=== PATIENT | male | born 1965 | race Caucasian/White ===

== ENCOUNTER 2018-03-06 00:30 | Emergency (ER) | payer MEDICAID, SELFPAY ==
[2018-03-06 00:31] VITALS: BP 190/129; PULSE 82; RESP 20; TEMP 36.7; O2SAT 98; BMI 27.2
--- NOTE | 2018-03-06 00:54 | ED.VIS.GEN ---
History of Present Illness Chief Complaint: Complaint Informant: Patient Onset: Yesterday Context: Gradual Onset Timing: Continuous Quality: can't urinate. burning at distal penis. Location: urethral Current Severity: Severe Maximum Severity: Severe Worsened by: urinating -- burning is worse. Relieved by: nothing Associated Symptoms: small amts of blood Narrative: Patient was transferred here from [facility] because they were not able to get a Holland catheter in for urinary retention. They attempted 3 times. Patient started having urinary retention symptoms yesterday but was able to urinate today, last time he urinated completely was about 11 hours ago. He had a small amount of urine output 3 or 4 hours after that, but none since despite trying. There were blood and clots present during and after Holland catheter attempts. The patient states he has always had difficulty making a good strong stream of urine, and has to physically push at the end get the rest of the urine out. He denies having any perineal pain or pain with having bowel movements, which have been normal and he has had no constipation. He denies any fevers, back pain, nausea, vomiting. He has no regular doctor. Past Medical History - Allergies and Home Meds Allergies/Adverse Reactions: Allergies No Known Allergies Allergy (Verified 03/06/18 00:33) Home Medications: Home Medications Medication Instructions Recorded Smz/Tmp Ds [Bactrim Ds] 1 tab PO BID #14 tab 03/06/18 Primary Care Physician: Laura Armas [Primary Care Provider] - Review of Systems All systems negative except as indicated General: Denies: Chills, Fever Gastrointestinal: Reports: Abdominal pain - due to full bladder and inability to urinate. Denies: Nausea, Vomiting Genitourinary: Reports: Dysuria, Hematuria, - - urinary retention. Denies: Frequency Physical Exam Vital Signs/Narrative: Vital Signs Temp Pulse Resp BP Pulse Ox 03/06/18 00:31 98.0 F 82 20 H 190/129 H 98 General: Well nourished, Well developed Head: Normocephalic, Atraumatic Eyes: Perrl, EOMI Cardiovascular: Regular rate, Regular rhythm, No murmurs Respiratory: No distress, CTA bilaterally, Chest nontender Abdomen: Soft, Nontender, Normal bowel sounds, - - suprapubic discomfort/distension Back: Nontender, Normal Inspection. Negative for: CVA tenderness Extremities: Nontender, No edema Skin: Normal color, No rash Neurological: Alert, Oriented x3, Cranial nerves II-XII grossly intact, Normal Strength, Normal Sensation, Normal Gait Psychological: - - anxious Diagnostic/Tx/Re-eval - Medical Decision Making Nurse attempted to place a daily 18 Ukrainian catheter, the largest available, and was unsuccessful in getting it past the prostate. Discussed with urology Dr. Barboza who came and evaluated the patient was able to place a catheter using instrumentation, he suspects a false passage, urinalysis shows signs of infection this was sent for culture and he will be started on Bactrim, he will follow up with Dr. carrizales in approximately 2 weeks, sent home with a leg bag, he feels much better now. ED Disposition - Plan for ED Patient: Disposition: Home or Assisted Living Chief Complaint: Complaint Diagnosis: Acute urinary retention, Acute lower UTI Instructions: ED Retention Urinary Male, ED UTI Cystitis Male Prescriptions: Smz/Tmp Ds [Bactrim Ds] 1 tab PO BID #14 tab Referrals: Laura Armas [Primary Care Provider] - Colton Tuttle MD [STAFF PHYSICIAN] - 1-2 Weeks (call for appt)
--- NOTE | 2018-03-06 00:58 | ED.DCSUM_ITS ---
History of Present Illness Chief Complaint: Complaint Informant: Patient Onset: Yesterday Context: Gradual Onset Timing: Continuous Quality: can't urinate. burning at distal penis. Location: urethral Current Severity: Severe Maximum Severity: Severe Worsened by: urinating -- burning is worse. Relieved by: nothing Associated Symptoms: small amts of blood Narrative: Patient was transferred here from [facility] because they were not able to get a Holland catheter in for urinary retention. They attempted 3 times. Patient started having urinary retention symptoms yesterday but was able to urinate today, last time he urinated completely was about 11 hours ago. He had a small amount of urine output 3 or 4 hours after that, but none since despite trying. There were blood and clots present during and after Holland catheter attempts. The patient states he has always had difficulty making a good strong stream of urine, and has to physically push at the end get the rest of the urine out. He denies having any perineal pain or pain with having bowel movements, which have been normal and he has had no constipation. He denies any fevers, back pain, nausea, vomiting. He has no regular doctor. Past Medical History - Allergies and Home Meds Allergies/Adverse Reactions: Allergies No Known Allergies Allergy (Verified 03/06/18 00:33) Home Medications: Home Medications Medication Instructions Recorded Smz/Tmp Ds [Bactrim Ds] 1 tab PO BID #14 tab 03/06/18 Primary Care Physician: Laura Armas [Primary Care Provider] - Review of Systems All systems negative except as indicated General: Denies: Chills, Fever Gastrointestinal: Reports: Abdominal pain - due to full bladder and inability to urinate. Denies: Nausea, Vomiting Genitourinary: Reports: Dysuria, Hematuria, - - urinary retention. Denies: Frequency Physical Exam Vital Signs/Narrative: Vital Signs Temp Pulse Resp BP Pulse Ox 03/06/18 00:31 98.0 F 82 20 H 190/129 H 98 General: Well nourished, Well developed Head: Normocephalic, Atraumatic Eyes: Perrl, EOMI Cardiovascular: Regular rate, Regular rhythm, No murmurs Respiratory: No distress, CTA bilaterally, Chest nontender Abdomen: Soft, Nontender, Normal bowel sounds, - - suprapubic discomfort/ distension Back: Nontender, Normal Inspection. Negative for: CVA tenderness Extremities: Nontender, No edema Skin: Normal color, No rash Neurological: Alert, Oriented x3, Cranial nerves II-XII grossly intact, Normal Strength, Normal Sensation, Normal Gait Psychological: - - anxious Diagnostic/Tx/Re-eval - Medical Decision Making Nurse attempted to place a daily 18 Khmer catheter, the largest available, and was unsuccessful in getting it past the prostate. Discussed with urology Dr. Barboza who came and evaluated the patient was able to place a catheter using instrumentation, he suspects a false passage, urinalysis shows signs of infection this was sent for culture and he will be started on Bactrim, he will follow up with Dr. carrizales in approximately 2 weeks, sent home with a leg bag , he feels much better now. ED Disposition - Plan for ED Patient: Disposition: Home or Assisted Living Chief Complaint: Complaint Diagnosis: Acute urinary retention, Acute lower UTI Instructions: ED Retention Urinary Male, ED UTI Cystitis Male Prescriptions: Smz/Tmp Ds [Bactrim Ds] 1 tab PO BID #14 tab Referrals: Laura Armas [Primary Care Provider] - Colton Tuttle MD [STAFF PHYSICIAN] - 1-2 Weeks (call for appt)
--- NOTE | 2018-03-06 01:51 | PCM.CONS.U ---
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 He went to an outside emergency room and they attempted to place a catheter they were unsuccessful he states they tried 3 different catheters 3 different times. He was transferred to [place] after unable to place a catheter. The nurse here at this hospital tried one time and was still unable to place a catheter so I was called in. Past Medical History Allergies No Known Allergies Allergy (Verified 03/06/18 00:33) Surgical History: no surgical history Psychiatric History: No pertinent psych hx Lives: Spouse/ Significant Other Smoking Status: Never smoker Tobacco Use: Non-smoker Alcohol: None Drugs: None Review of Systems Constitutional: Denies: Chills, Fever, Weight Change HEENT: Denies: Head Aches, Sinus Congestion, Sinus Drainage Cardiovascular: Denies: Chest Pain, Palpitations Respiratory: Denies: Cough, Shortness of breath at rest, Sputum production Gastrointestinal: Denies: Abdominal Pain, Nausea, Vomiting Genitourinary: Reports: Dysuria, Retention Musculoskeletal: Denies: Joint Pain, Joint Tenderness Skin: Denies: Rash, Wounds Neurological: Denies: Numbness, Tingling, Focal weakness Psychiatric: Denies: Anxiety, Depression, Homicidal Ideations, Suicidal Ideations Hematologic/ Lymphatic: Denies: Easy Bruising, Easy Bleeding Physical Exam - Physical Exam Vital Signs Temp 98.0 F 03/06/18 00:31 Pulse 82 03/06/18 00:31 Resp 20 H 03/06/18 00:31 BP 190/129 H 03/06/18 00:31 Pulse Ox 98 03/06/18 00:31 Intake & Output 03/04/18 03/05/18 03/06/18 23:59 23:59 23:59 Weight: 96.2 kg General: Alert, Oriented x3 HEENT: Atraumatic Oral: Moist Mucosa Neck: No JVD Lungs: Normal air movement Cardiovascular: Regular rate, Regular Rhythm Abdomen: Bowel Sounds Present, Soft Rectal: Exam deferred Testicle: Right Normal, Left Normal Epididymis: Right Normal, Left Normal Scrotum: No lesions, No warts, No rash Penis: Circumcised Extremities: No clubbing, No cyanosis, No edema Skin: No rashes Musculoskeletal: No Tenderness to Palpation of Joints or Extremities Lymphatic: No Cervical, Supraclavicular, or Inguinal Adenopathy Neurological: Cranial nerves II-XII grossly intact Psych/Mental Status: Normal Affect, Anxious Assessment/Plan At the bedside I first prepped and draped the penis in usual sterile fashion, I then placed lidocaine jelly into the urethra, I first attempted a 16 Sami coud? catheter and met resistance right at the turn of the prostate. I then used a [employer] urology kit. I advanced the first wire and met resistance did not push any further and then I used a second wire and then was able to pass a second wire passed the area resistance and into the bladder. I did not do dilation since my instincts in the feet way the wire fell it was more of a false passage. So then over the second wire I passed a 16 Sami [place] tip catheter and was able to get into the bladder and drained over 500 cc in the bladder. Suspect he has large prostate causing obstruction and suspect he developed some to her false passage in [address] catheter unable to tell for sure since I could not do cystoscopy today in the emergency room. Nevertheless he will have to go home with a catheter and should call and make an appointment to see me in about a week. I will need to perform cystoscopy to evaluate the urethra channel the prostate to see what was causing obstruction to determine best treatment. He will be discharged home with a catheter and antibiotics and should have my number to contact to make an appointment.
--- NOTE | 2018-03-06 01:57 | CON.PCM_ITS ---
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 He went to an outside emergency room and they attempted to place a catheter they were unsuccessful he states they tried 3 different catheters 3 different times. He was transferred to [place] after unable to place a catheter. The nurse here at this hospital tried one time and was still unable to place a catheter so I was called in. Past Medical History Allergies No Known Allergies Allergy (Verified 03/06/18 00:33) Surgical History: no surgical history Psychiatric History: No pertinent psych hx Lives: Spouse/ Significant Other Smoking Status: Never smoker Tobacco Use: Non-smoker Alcohol: None Drugs: None Review of Systems Constitutional: Denies: Chills, Fever, Weight Change HEENT: Denies: Head Aches, Sinus Congestion, Sinus Drainage Cardiovascular: Denies: Chest Pain, Palpitations Respiratory: Denies: Cough, Shortness of breath at rest, Sputum production Gastrointestinal: Denies: Abdominal Pain, Nausea, Vomiting Genitourinary: Reports: Dysuria, Retention Musculoskeletal: Denies: Joint Pain, Joint Tenderness Skin: Denies: Rash, Wounds Neurological: Denies: Numbness, Tingling, Focal weakness Psychiatric: Denies: Anxiety, Depression, Homicidal Ideations, Suicidal Ideations Hematologic/ Lymphatic: Denies: Easy Bruising, Easy Bleeding Physical Exam - Physical Exam Vital Signs Temp 98.0 F 03/06/18 00:31 Pulse 82 03/06/18 00:31 Resp 20 H 03/06/18 00:31 BP 190/129 H 03/06/18 00:31 Pulse Ox 98 03/06/18 00:31 Intake & Output 03/04/18 03/05/18 03/06/18 23:59 23:59 23:59 Weight: 96.2 kg General: Alert, Oriented x3 HEENT: Atraumatic Oral: Moist Mucosa Neck: No JVD Lungs: Normal air movement Cardiovascular: Regular rate, Regular Rhythm Abdomen: Bowel Sounds Present, Soft Rectal: Exam deferred Testicle: Right Normal, Left Normal Epididymis: Right Normal, Left Normal Scrotum: No lesions, No warts, No rash Penis: Circumcised Extremities: No clubbing, No cyanosis, No edema Skin: No rashes Musculoskeletal: No Tenderness to Palpation of Joints or Extremities Lymphatic: No Cervical, Supraclavicular, or Inguinal Adenopathy Neurological: Cranial nerves II-XII grossly intact Psych/Mental Status: Normal Affect, Anxious Assessment/Plan At the bedside I first prepped and draped the penis in usual sterile fashion, I then placed lidocaine jelly into the urethra, I first attempted a 16 Telugu coud ? catheter and met resistance right at the turn of the prostate. I then used a [employer] urology kit. I advanced the first wire and met resistance did not push any further and then I used a second wire and then was able to pass a second wire passed the area resistance and into the bladder. I did not do dilation since my instincts in the feet way the wire fell it was more of a false passage. So then over the second wire I passed a 16 Telugu [place] tip catheter and was able to get into the bladder and drained over 500 cc in the bladder. Suspect he has large prostate causing obstruction and suspect he developed some to her false passage in [address] catheter unable to tell for sure since I could not do cystoscopy today in the emergency room. Nevertheless he will have to go home with a catheter and should call and make an appointment to see me in about a week. I will need to perform cystoscopy to evaluate the urethra channel the prostate to see what was causing obstruction to determine best treatment. He will be discharged home with a catheter and antibiotics and should have my number to contact to make an appointment.
[2018-03-06 02:32] LABS: Squamous Epithelial Cells - UA 0 SEEN /hpf (0-5)
[2018-03-06 02:35] LABS: Color, Urine Brown (Yellow); Glucose, Dipstick Normal (Normal); Ketone-Dipstick 15 mg/dl (Negative); Leukocyte Esterase-Dipstick 500 /ul (Negative); Nitrite-Dipstick Negative (Negative); Occult Blood-Urine 250 /ul (Negative); Protein-Dipstick 100 mg/dl (Negative); Specific Gravity, Urine 1.015 (1.002-1.030); Urine Bilirubin Dipstick Negative (Negative); Urine Clarity Turbid (Clear); Urine Urobilinogen Normal (Normal)
[2018-03-06 02:44] LABS: Bacteria 3+ /hpf (None Seen); Calcium Oxalate Crystals Ur 2+ /hpf (<or=2+); Mucous, Urine 2+ /hpf (<or=2+); Red Blood Cells-Urine > 100 SEEN /hpf (0-5); White Blood Cells >100 SEEN /hpf (0-5)
--- NOTE | 2018-03-06 03:05 | ED.RN ---
PT WAS SENT FROM [facility] SINCE THEY WERE UNSUCCEFUL PLACING A OCHOA AFTER A NUMBER OF TRIES. ONE ATTEMPT W A COUDE CATH HERE BY THIS RN AND STILL UNABLE TO PLACE A CATH. DR. HAYNES CALLED IN, TRIED TO USE A COUDE AND WAS UNABLE, THEN USED A GUIDE WIRE AND GOT A OCHOA PLACED. LABS SENT. LEG BACK INSTRUCTION GIVEN
[2018-03-06] MEDS: Smz/Tmp Ds Tablet 1 TABLET PO (03:17)
[2018-03-06] MEDS: Lidocaine Jelly 2% 20 ML Syringe (URO-JET) 20 APPLIC TOPICAL (03:17)
[2018-03-06 03:19] VITALS: BP 127/74; PULSE 74; RESP 16; O2SAT 98
== END 2018-03-06 03:23 | disposition home or self-care (01) ==
PROVIDERS: Emergency Provider Emergency Medicine; Family Provider Family Medicine; PCP Family Medicine
DX: N39.0 Urinary tract infection, site not specified (principal); R33.9 Retention of urine, unspecified; R31.9 Hematuria, unspecified
CPT/HCPCS: 51702; 81001; 87077; 87086; 87088; 99284

== ENCOUNTER 2019-07-28 18:20 | Emergency (ER) | payer MEDICAID, SELFPAY ==
[2019-07-28 18:21] VITALS: BP 161/105; PULSE 81; RESP 18; TEMP 36.8; O2SAT 98; BMI 26.9
--- NOTE | 2019-07-28 18:48 | RAD_ITS ---
STUDY: X-RAY CHEST REASON FOR EXAM: Male, 53 years old. Syncope TECHNIQUE: PA and lateral views of the chest COMPARISON: None. FINDINGS: The lungs are clear. There are no pleural effusions. There is no pneumothorax. The heart is normal in size. The visualized osseous structures are within normal limits. RAD/Chest PA and Lateral IMPRESSION: No acute thoracic pathology. Electronically Signed: Josep Angulo, at 19:05 EDT Tel , Service support ,
--- NOTE | 2019-07-28 19:37 | ED.RN ---
pt reports that this visit is not workers comp related.
--- NOTE | 2019-07-28 19:56 | ED.VIS.GEN ---
History of Present Illness Chief Complaint: Occup Expose Informant: Patient Onset: Yesterday Narrative: Patient is a 53-year-old male with no significant past medical history presenting after syncopal episode. Patient states he was at work yesterday and he went into a corn silo. Patient states he must of inhaled some of the silo fumes because he then became lightheaded and confused. Patient states he later woke up. Currently patient had a syncopal episode. He states he was very confused for a lot of the day yesterday. He now feels better. He notes that when he takes a very deep breath he has some slight shortness of breath. Patient states he looked up online silo inhalation injuries and came to the emergency room to be evaluated further. He states he currently feels fine and has no symptoms. He denies any other complaints at this time. He was not evaluated immediately after the episode. He does not follow with a primary care provider regularly. Patient denies any tobacco use. He currently denies any shortness of breath or chest pain. Past Medical History - Allergies and Home Meds Allergies/Adverse Reactions: Allergies No Known Allergies Allergy (Verified 07/28/19 18:25) Primary Care Physician: Care Physician,No Primary [Primary Care Provider] - Past Medical History: None Surgical History: no surgical history Lives: Spouse/ Significant Other Smoking Status: Never smoker Review of Systems All systems negative except as indicated General: Reports: - - Syncopal episode yesterday Respiratory: Reports: Dyspnea - With deep inspiration Physical Exam Vital Signs/Narrative: Vital Signs Temp Pulse Resp BP Pulse Ox 07/28/19 18:21 98.3 F 81 18 161/105 H 98 Inital Vital Signs reviewed: Yes General: Well nourished, Well developed, No Acute Distress Head: Normocephalic, Atraumatic Eyes: Perrl, EOMI ENT: Moist mucous membranes, No rhinorrhea Neck: Supple, Nontender Cardiovascular: Regular rate, Regular rhythm, No murmurs Respiratory: No distress, CTA bilaterally, Chest nontender Abdomen: Soft, Nontender, Nondistended, Normal bowel sounds Back: Nontender, Normal Inspection Extremities: Nontender, No edema Skin: Normal color, No rash Neurological: Alert, Oriented x3, Cranial nerves II-XII grossly intact, Normal Strength, Normal Sensation Psychological: Normal affect, Normal Mood Diagnostic/Tx/Re-eval Chest X-Ray - ED: 2 View, Read by ED Physician, Read by Radiologist, No Acute Disease - Medical Decision Making Patient is evaluated after an inhalation injury that occurred yesterday. Patient of inhaled fumes associated with a corn silo. He had associated syncopal episode. He is now returned to his baseline. He has no complaints. Chest x-ray does not show any acute process or signs of a chemical pneumonitis. The patient is safe for discharge. He is given a PCP to follow-up with. He is counseled on signs and symptoms requiring return to emergency room. Because the inhalation occurred over 24 hours ago and now feels fine I do not think carboxyhemoglobin or methemoglobin level warrants checking. Patient is counseled on signs and symptoms requiring return to the emergency room. Patient verbalizes agreement and understand this plan. Patient discharged home in stable and improved condition. ED Disposition - Plan for ED Patient: Disposition: Home or Assisted Living Diagnosis: Inhalation of gaseous substance, Syncope Instructions: Chemical Inhalation Referrals: Care Physician,No Primary [Primary Care Provider] - Irving Reis MD [STAFF PHYSICIAN] - Additional Instructions: Emergency room if you have any worsening respiratory symptoms. Please follow-up with the primary care provider given to you today.
[2019-07-28 20:14] VITALS: BP 149/94; PULSE 75; RESP 15; O2SAT 98
--- NOTE | 2019-07-28 20:14 | ED.RN ---
PT GIVEN WRITTEN AND VERBAL DISCHARGE INSTRUCTIONS. PT EDUCATED TO RETURN TO ED FOR ANY NEW OR WORSENED SX. PT VERBALIZES UNDERSTANDING AND DENIES ANY FURTHER QUESTIONS.PT DRESSES SELF AND AMBULATES OUT OF DEPT ALONE.
== END 2019-07-28 20:16 | disposition home or self-care (01) ==
PROVIDERS: Emergency Provider Emergency Medicine
DX: T59.91XA Toxic effect of unspecified gases, fumes and vapors, accidental (unintentional), initial encounter (principal); R55 Syncope and collapse; Y92.9 Unspecified place or not applicable
CPT/HCPCS: 71046; 99282

== ENCOUNTER → 2020-11-17 09:19 | Outpatient (CLI) | payer MEDICAID, SELFPAY | PROVIDERS: PCP Family Medicine; Visit Provider Family Medicine | DX: Z46.89 Encounter for fitting and adjustment of other specified devices (principal) ==

== ENCOUNTER → 2022-12-13 | Outpatient (CLI) | payer MEDICAID, SELFPAY ==
--- NOTE | 2022-12-13 08:29 | EKG12_ITS ---
Test Reason : PREOP Blood Pressure : / mmHG Vent. Rate : 063 BPM Atrial Rate : 063 BPM P-R Int : 160 ms QRS Dur : 094 ms QT Int : 368 ms P-R-T Axes : 040 041 037 degrees QTc Int : 376 ms Normal sinus rhythm Nonspecific T wave abnormality Abnormal ECG Confirmed by KEDAR GRIMALDO, MITCH ([id number]), editor publications SHELBY RAMON ([id number]) on 12/16/2022 11:37:06 AM Referred By: HILLARY Confirmed By:MITCH THACKER MD
[2022-12-13 09:06] LABS: Hematocrit 45.1 % (40-54); Hemoglobin 15.2 g/dL (13.0-16.5); Mean Corp Hgb Conc 33.7 g/dL (32-36); Mean Corpuscular Volume 89.1 fL (80-94); Platelet Count 219 K/mm3 (150-450); RBC Distribution Width CV 12.5 % (11.6-14.6); RBC Distribution Width SD 40.7 fl (35.1-43.9); Red Blood Count 5.06 M/mm3 (4.6-6.2); White Blood Count 5.7 K/mm3 (4.4-11.0)
[2022-12-13 09:27] LABS: Anion Gap 6 (5-15); BUN 17 mg/dL (7-18); BUN/Creat Ratio 15.9 RATIO (10-20); Calcium,Total 9.5 mg/dL (8.5-10.1); Chloride 107 mmol/L (98-107); Creatinine, Serum 1.07 mg/dL (0.70-1.30); EST Glomerular Filtration Rate 75 mL/min (>60); Est Glom Filt Rate - Afr Amer 91 mL/min (>60); Glucose 116 mg/dL (74-106); Potassium 4.3 mmol/L (3.5-5.1); Sodium Level 142 mmol/L (136-145)
== END | disposition home or self-care (01) ==
PROVIDERS: PCP Family Medicine; Visit Provider Physician Assistant
DX: Z01.818 Encounter for other preprocedural examination (principal)
CPT/HCPCS: 36415; 80048; 85027; 93005